=== PATIENT | male | born 1980 | race Hispanic/Latino ===

== ENCOUNTER 2021-03-16 15:38 | Emergency (ER) | payer OTHER ==
[~2021-03-16] VITALS: Ht 182.9 cm; Wt 70.8 kg
[2021-03-16 15:40] VITALS: BP 110/79
[2021-03-16] MEDS ORDERED: AZITHROMYCIN 250 MG TABLET PO ONE (21:30)
[2021-03-16] MEDS ORDERED: IBUPROFEN 600 MG TABLET PO ONE (21:30)
[2021-03-16] MEDS ORDERED: ALBUTEROL INHALER 90MCG/INH IH PRN (21:30)
[2021-03-16] MEDS ORDERED: AZIT250T9 PO (21:41)
[2021-03-16] MEDS ORDERED: IBUP-2070 PO (21:41)
[2021-03-16] MEDS ORDERED: GUAI-899 PO (21:41)
[2021-03-16 22:26] VITALS: BP 129/70
== END 2021-03-16 22:27 | disposition home or self-care (01) ==
LOC: EDH 15:38
DX: U07.1 COVID-19 (principal); J40 Bronchitis, not specified as acute or chronic; Z79.1 Long term (current) use of non-steroidal anti-inflammatories (NSAID); Z79.899 Other long term (current) drug therapy
CPT/HCPCS: 71045; 87635; 87804 ×2; 99284; C9803